=== PATIENT | female | born 1980 | race Caucasian/White ===

== ENCOUNTER 2022-07-02 20:31 | Emergency (ER) | payer OTHER ==
[2022-07-02 20:42] VITALS: BP 141/82; PULSE 75; RESP 18; TEMP 98.1; BMI 26.6
[2022-07-02 22:26] LABS: BASO % 0.7 % (0-2.0); EOS % 0.5 % (0-4.5); HEMATOCRIT 36.1 % (32.4-45.2); HEMOGLOBIN 12.2 GM/dL (10.7-15.3); MCH 29.5 pg (25.7-33.7); MCHC 33.7 g/dl (32.0-36.0); MEAN CELL VOLUME 87.6 fl (80-96); MEAN PLT VOLUME 7.3 fl (7.5-11.1); MONO % 4.2 % (3.8-10.2); NEUT % 84.6 % (42.8-82.8); PLATELET COUNT 412 10^3/uL (134-434); RBC 4.12 M/mm3 (3.60-5.2); RDW 14.4 % (11.6-15.6); WHITE BLOOD COUNT 13.1 K/mm3 (4.0-10.0)
[2022-07-02 22:33] LABS: INR 1.12 (0.83-1.09); PROTHROMBIN TIME (PATIENT) 12.9 SEC (9.7-13.0)
[2022-07-02 22:36] LABS: ACTIVATED PTT 26.5 SECONDS (25.2-36.5)
[2022-07-02 22:43] LABS: CHLORIDE 108 mmol/L (98-107); SODIUM 142 mmol/L (136-145)
[2022-07-02 22:45] LABS: CALCIUM 8.6 mg/dL (8.5-10.1)
[2022-07-02 22:46] LABS: ALBUMIN 3.6 g/dl (3.4-5.0); ANION GAP 8 MMOL/L (8-16); BLOOD UREA NITROGEN 13.8 mg/dL (7-18); CO2 26 mmol/L (21-32); GLUCOSE,RANDOM 77 mg/dL (74-106)
[2022-07-02 22:49] LABS: CREATININE 0.8 mg/dL (0.55-1.3); SGOT/AST 16 U/L (15-37); SGPT/ALT 16 U/L (13-61)
[2022-07-02 22:51] LABS: BILIRUBIN,TOTAL 0.3 mg/dL (0.2-1)
[2022-07-02 22:52] LABS: ALK PHOS 71 U/L (45-117)
== END 2022-07-02 23:42 | disposition home or self-care (01) ==
LOC: JER 20:31
DX: F11.10 Opioid abuse, uncomplicated (principal)
CPT/HCPCS: 36415; 70450-TC; 71045-TC-FY; 80053; 84484; 84702; 85025; 85610; 85730; 93005; 93010; 99285-25